=== PATIENT | female | born 1985 | race Caucasian/White ===

== ENCOUNTER 2016-09-11 12:06 | Inpatient (IN) | payer BC ==
[~2016-09-11] VITALS: Ht 160 cm; Wt 85.0 kg
[2016-10-07 20:26] LABS: BASO % 0.2 % (0.0-2.0); EOS # 0.1 (0.0-0.7); EOS % 0.3 % (0-4.0); GRAN # 12.5 (1.4-6.5); GRAN % 76.7 % (42.2-75.2); HEMATOCRIT 38.4 % (37.0-47.0); HEMOGLOBIN 12.9 g/dl (12.5-16.0); LYMPH # 2.5 (1.2-3.4); LYMPH % 15.5 % (20.0-51.0); MEAN CELL VOLUME 83 fl (80.0-100.0); MEAN CORPUSCULAR HEMOGLOBIN 28 pg (27.0-31.0); MEAN CORPUSCULAR HGB CONC 34 g/dl (33.0-37.0); MEAN PLATELET VOLUME 11.2 fl (7.4-10.4); MONO # 1.1 (0.1-0.6); MONO % 6.6 % (1.7-9.3); PLATELET COUNT 340 K/mm3 (130-400); RED BLOOD COUNT 4.64 M/mm3 (4.10-5.30); REDCELL DISTRIBUTION WIDTH-CV 13.4 % (11.5-14.5); WHITE BLOOD COUNT 16.3 K/mm3 (4.8-10.8)
[2016-10-07 20:42] VITALS: BP 135/89; PULSE 118; TEMP 98.5
[2016-10-07 21:15] VITALS: BP 122/83; PULSE 108
[2016-10-07] MEDS ORDERED: ALBUTEROL SULFAT3 M3 (21:19)
[2016-10-07] MEDS ORDERED: QVAR0.08 MG/AC IH (21:21)
[2016-10-07] MEDS ORDERED: B COMPLEX #11 TA1 (21:22)
[2016-10-07] MEDS ORDERED: SINGULAIR 110 MG/TAB PO (21:24)
[2016-10-07] MEDS ORDERED: ZOLOFT 50MG50 MG PO (21:25)
[2016-10-07] MEDS ORDERED: PRENATA1 CTB PO (21:26)
[2016-10-07] MEDS ORDERED: CITRACAL PETITES PO (21:28)
[2016-10-07] MEDS ORDERED: [UNRECOGNIZED DRUG - OTHER] PO (21:31)
[2016-10-07] MEDS ORDERED: PRIL40 PO (21:32)
[2016-10-07] MEDS ORDERED: [UNRECOGNIZED DRUG - REMARK] PO (21:39)
[2016-10-07 21:45] VITALS: BP 123/80; PULSE 101
[2016-10-07 22:15] VITALS: BP 123/81; PULSE 102; TEMP 98.3
[2016-10-07 22:45] VITALS: BP 124/86; PULSE 103
[2016-10-07] MEDS ORDERED: ATIVAN 0.50.5 MG/TAB PO (23:30)
[2016-10-08] VITALS (40 sets, daily range): BP systolic 92–146; BP diastolic 50–98; PULSE 78–153; TEMP 98–98.5
[2016-10-08] MEDS ORDERED: CITRACAL PETITE1 TAB PO (16:49)
[2016-10-09 01:00] VITALS: BP 115/68; PULSE 88; TEMP 98
[2016-10-09 05:00] VITALS: BP 120/68; PULSE 68; TEMP 98.1
[2016-10-09 07:15] VITALS: BP 92/54; PULSE 85; TEMP 97.2
[2016-10-09 07:30] LABS: BASO # 0.1 (0.0-0.2); BASO % 0.3 % (0.0-2.0); EOS # 0.1 (0.0-0.7); EOS % 0.8 % (0-4.0); GRAN # 12.6 (1.4-6.5); GRAN % 70.5 % (42.2-75.2); LYMPH # 3.5 (1.2-3.4); LYMPH % 19.7 % (20.0-51.0); MEAN CELL VOLUME 86 fl (80.0-100.0); MEAN CORPUSCULAR HGB CONC 32 g/dl (33.0-37.0); MEAN PLATELET VOLUME 11.1 fl (7.4-10.4); MONO # 1.4 (0.1-0.6); MONO % 7.8 % (1.7-9.3); PLATELET COUNT 265 K/mm3 (130-400); RED BLOOD COUNT 3.76 M/mm3 (4.10-5.30); REDCELL DISTRIBUTION WIDTH-CV 13.5 % (11.5-14.5); WHITE BLOOD COUNT 17.9 K/mm3 (4.8-10.8)
[2016-10-09 07:33] LABS: HEMATOCRIT 32.2 % (37.0-47.0); HEMOGLOBIN 10.4 g/dl (12.5-16.0); MEAN CORPUSCULAR HEMOGLOBIN 28 pg (27.0-31.0)
[2016-10-09] MEDS ORDERED: IBU800 M1 PO (08:25)
[2016-10-09] MEDS ORDERED: PERCOCET 325 MG1 TA2 PO (08:25)
[2016-10-09 16:30] VITALS: BP 131/88; PULSE 97; TEMP 97.7
[2016-10-09 20:45] VITALS: BP 131/86; PULSE 105; TEMP 98.4
[2016-10-10 08:41] VITALS: BP 119/80; PULSE 97
== END 2016-10-10 14:05 | disposition home or self-care (01) | DRG 775 ==
LOC: LDR → EDSTATUS 09-30 09:50 → LDRO 09-30 12:05 → LDR 10-07 09:03 → OB 10-07 19:34 → LDR 10-07 19:34 → OB 10-08 17:50
PROVIDERS: Student in an Organized Health Care Education/Training Program
PROC: 10E0XZZ Delivery of Products of Conception, External Approach (ICD-10-PCS; principal; 2016-10-08)
PROC: 0KQM0ZZ Repair Perineum Muscle, Open Approach (ICD-10-PCS; 2016-10-08)
PROC: 3E033VJ Introduction of Other Hormone into Peripheral Vein, Percutaneous Approach (ICD-10-PCS; 2016-10-08)
DX: O48.0 Post-term pregnancy (principal); O70.1 Second degree perineal laceration during delivery; Z3A.41 41 weeks gestation of pregnancy; Z37.0 Single live birth
CPT/HCPCS: J2400; J2590; J7120

== ENCOUNTER 2019-02-06 14:31 | Inpatient (IN) | payer BC ==
[2019-02-06] VITALS (31 sets, daily range): BP systolic 103–141; BP diastolic 56–88; PULSE 73–108; TEMP 97.3–98.2
[~2019-02-06] VITALS: Ht 160 cm; Wt 88.6 kg
[~2019-02-06 14:31] MED LIST: ALBUTEROL SULFAT3 M3; ATIVAN 0.50.5 MG/TAB PO; B COMPLEX #11 TA1; CITRACAL PETITE1 TAB PO; CITRACAL PETITES PO; IBU800 M1 PO; PERCOCET 325 MG1 TA2 PO; PRENATA1 CTB PO; PRIL40 PO; QVAR0.08 MG/AC IH; SINGULAIR 110 MG/TAB PO; ZOLOFT 50MG50 MG PO; [UNRECOGNIZED DRUG - OTHER] PO; [UNRECOGNIZED DRUG - REMARK] PO
--- NOTE | 2019-02-06 14:50 | NUR ---
Patient arrives ambulatory with spouse with complaints of contractions every 5 minutes. Patient states that she started clarissa last night and they have slowly increased in frequency. Patient denies ROM or vaginal bleeding. Reports normal movement. Patient changes into gown, EFM explained and placed. VS obtained. SVE by Richie Cevallos RN . Patient repositioned WL and updated on plan of care. Assessment completed. Patient breathing through contractions.
--- NOTE | 2019-02-06 15:15 | NUR ---
Called Dr. Barker office and spoke to nurse. Let her know that a patient of Dr. Cummings is here. Let her know that she is dilated to four, 75% effaced, -2 station. Also let her know that heart tones at 130 with accelerations noted. Nurse states will let Dr. Rockwell know.
--- NOTE | 2019-02-06 17:00 | NUR ---
1715 Request epidural. Anesthesia notified of request of epidural.
[2019-02-06 17:08] LABS: BASO % 0.2 % (0.0-2.0); EOS % 0.1 % (0-4.0); GRAN % 79.3 % (42.2-75.2); HEMOGLOBIN 11.2 g/dl (12.5-16.0); LYMPH # 2.2 (1.2-3.4); LYMPH % 13.4 % (20.0-51.0); MEAN CELL VOLUME 84 fl (80.0-100.0); MEAN CORPUSCULAR HEMOGLOBIN 27 pg (27.0-31.0); MEAN CORPUSCULAR HGB CONC 33 g/dl (33.0-37.0); MEAN PLATELET VOLUME 9.8 fl (7.4-10.4); PLATELET COUNT 286 K/mm3 (130-400); RED BLOOD COUNT 4.11 M/mm3 (4.10-5.30); REDCELL DISTRIBUTION WIDTH-CV 13.5 % (11.5-14.5)
[2019-02-06 17:19] LABS: HEMATOCRIT 34.3 % (37.0-47.0)
--- NOTE | 2019-02-06 17:30 | NUR ---
1735 Anesthesia here, visits with patient. 1744 Local given by anesthesia Birdie Winslow c.r.na. 1745 Space obtained and single shot given by anesthesia. 1748 Catheter placed by anesthesia.
--- NOTE | 2019-02-06 18:00 | NUR ---
Rests in bed, states feeling better.
--- NOTE | 2019-02-06 22:20 | NUR ---
2144- DR. MARTINEZ ON HER WAY TO ASSESS PT. NOTIFIED THAT PT STATES SHE IS FEELING INCREASED PRESSURE IN HER VAGINA 2148- POSITION CHANGED TO LEFT LATERAL WITH LEG IN STIRRUP. 2152- ADJUSTING TOCO, FHT'S NOTED IN THE 70-80'S. PULSE OX ON, MATERNAL HR OF 80. STRIP BROKEN BUT FHT AUDIBLE IN THE 90'S. 2154- Anabella. THERESA PEARSON IN ROOM TO ASSIST. THIS NURSE PERFORMS SVE, RIGHT ANTERIOR LIP, CLEAR FLUID NOTED DURING EXAM WITH MEMBRANES HANGING FROM VAGINA, SROM AT APPROXIMATELY THIS TIME. 02 APPLIED AT 10L PER MASK. 2155- LR BOLUS STARTED, POSITIONED CHANGED TO SEMI FOWLERS. 2199- DR. MARTINEZ NOTIFIED OF FHT'S AND SROM. FHT'S NOW IN THE LOW 100'S. DR. MARTINEZ STATES SHE IS ALMOST TO THE HOSPITAL. 2204- DR. MARTINEZ IN ROOM, SVE OF COMPLETE. 2209- PT BEGINS PUSHING WITH DR. MARTINEZ. 2216- SPONTANEOUS VAGINAL DELIVERY OF VIABLE BABY BOY. CORD CLAMPED BY DR. MARTINEZ, CUT BY FOB. BABY TO MOTHER'S ABDOMEN, CARE ASSUMED BY Valerie PERALTA RN. 2219- SPONTANEOUS DELIVERY OF INTACT PLACENTA. PITOCIN STARTED PER PROTOCOL. DR. MARTINEZ BEGINS REPAIR OF SECOND DEGREE LACERATION. RIGHT LABIAL LACERATION NOTED BUT DOES NOT REQUIRE REPAIR PER DR. MARTINEZ. RECOVERY STARTED.
[2019-02-07] VITALS (7 sets, daily range): BP systolic 98–119; BP diastolic 46–78; PULSE 76–93; TEMP 97.9–98.8
[2019-02-08] MEDS ORDERED: IBU600 MG PO (08:17)
[2019-02-08 09:00] VITALS: BP 118/84; PULSE 72; TEMP 98
--- NOTE | 2019-02-08 10:26 | NUR ---
Initial visit attempt; Patient resting then Physician came. Crutch Maker left card of congratulations and God's blessings for the of her son and information regarding the availability of spiritual care at [facility].
== END 2019-02-08 15:30 | disposition home or self-care (01) | DRG 807 ==
LOC: LDRO 14:31 → LDR 14:31 → LDRO 16:32 → LDR 16:33 → OB 02-07 06:30 → LDR 02-07 07:12 → EDSTATUS 02-07 14:57 → OB 02-08 15:30
PROVIDERS: Obstetrics & Gynecology; ADMIT Student in an Organized Health Care Education/Training Program
PROC: 10E0XZZ Delivery of Products of Conception, External Approach (ICD-10-PCS; principal; 2019-02-06)
PROC: 0KQM0ZZ Repair Perineum Muscle, Open Approach (ICD-10-PCS; 2019-02-06)
DX: O99.344 Other mental disorders complicating childbirth (principal); Z37.0 Single live birth; F32.9 Major depressive disorder, single episode, unspecified; F41.9 Anxiety disorder, unspecified; O99.214 Obesity complicating childbirth; E66.9 Obesity, unspecified; O99.52 Diseases of the respiratory system complicating childbirth; J45.909 Unspecified asthma, uncomplicated; F90.9 Attention-deficit hyperactivity disorder, unspecified type; O70.1 Second degree perineal laceration during delivery; O99.62 Diseases of the digestive system complicating childbirth; K21.9 Gastro-esophageal reflux disease without esophagitis; Z3A.40 40 weeks gestation of pregnancy
CPT/HCPCS: J2590; J2795; J7120

== ENCOUNTER → 2019-02-10 | Outpatient (CLI) | payer BC ==
[~2019-02-10] MED LIST changes: +IBU600 MG PO
--- NOTE | 2019-02-10 13:41 | NUR ---
Pt, Lottie Medel, presents for outpatient consult with four day old baby boy, Dionte Medel, for a evaluation. She is accompanied by her spouse, mother, and 3 year old child. Dionte was born on [birth year] by . He is her second child but she states she had "issues" her first child. The reports of what the issues were are difficult to understand. Dionte had latching issues while in the hospital because of pts large breasts, 's small size, pt's understanding of basics. At Dionte weighed 7#3.9oz (3285 gms). Discharge weight was 6#14oz. Dionte was noted to have a tongue tie while in the hospital, it was confirmed at his appointment with Dr. Munoz this morning so the family will be looking into have it treated next week. Today Dionte weighs 6#11.7 (3054 gms) for a 7% wt loss. Pt reports 6 voids and 2 stools yesterday and so far today 3 voids and 1 stool that is starting to turn brown/yellow/seedy. Pt's records reflect 6 feedings per 24 hours. She has been recording each side as a seperate feeding so it appears he nurses several times daily. But when looked at more closely, he is nursing both per feeding so actual number of feedings per day has not been more than six. Pt reports collecting milk on the breast he is not latched to with the [place] and has collected an average of 30ml per session, x 4 sessions so she feels her milk supply is good. Pt advised on proper placement of nipple shield to keep it in place better. With this he latches about 20 min on the right side and Total weight gain after was 1.2oz (34 gms). POC: Pt advised to breastfeed both sides each feeding, and at least 8 feedings per 24 hours, supplement 0.5-1oz p of EBM, pump after to ensure good milk supply and to have supplement. F/U: Not scheduled at this time as pt plans to have his tongue tie evaluated and she will contact this LC for an appointment pending that evaluation. Noeons invited and answered.
== END ==
LOC: OLC 13:01
DX: Z39.1 Encounter for care and examination of lactating mother (principal); Z71.89 Other specified counseling

== ENCOUNTER → 2019-02-21 | Outpatient (CLI) | payer BC ==
--- NOTE | 2019-02-21 16:32 | NUR ---
Pt, Lottie Medel, presents for follow up consult 17 day old baby boy, Dionte Medel, and her . They also were seen on 02/10/19 for a consult. Dionte was born on [birth year] by and weighed 7#3.9oz (3286 gms). It was noted he had a tongue tie. It was revised on 02/14/19. At our previous consult Dionte weighed 6#11.7oz. He transfered 1.2oz per post feed weight. Pt was advised to increase feedings from 6 to at least 8 and supplement about 1oz p breastfeedings. They had his [facility] at the [facility] on 02/16 and 02/20, both times he weighed 6#12oz. Pt contacted this LC after that and was advised to pump and bottle feed every 2-3 hours. Since yesterday they report Dionte is more interested in feedings, wakes himself up every 2-3 hours and drinks about 2oz EBM each feeding. Today Dionte weighs 7#2.3oz. Pt attempts here, with LC assist latch, is difficult and he has a total transfer of 8gms after 20 min of attempting. Dionte was then fed about 45ml EBM from a bottle. LC notes his ability to raise his tongue is better, he has a wound with appropriate healing under his tongue, but he continues to have an indentation at the tip of his tongue. During the feeding process it feels like he still slides the tongue in and out across the gum line. Pt states she still feels him biting. LC does a suck evaluation and notes he has a bit of a high anterior palate that may be trapping the nipple and not letting it get far enough back to get adequate compression to transfer milk. POC: Pump and bottle feed every 2-3 hours, offering 2-3 oz per feeding. Offer breast a few time daily, but recognize his effort is not sufficient to transfer adequately. Discussed/demonstrated suck training as a method to help with tongue placement. F/U: Scheduled for 03/10/19. Questions invited and answered.
== END ==
LOC: OLC 14:30
DX: Z39.1 Encounter for care and examination of lactating mother (principal); Z71.89 Other specified counseling

== ENCOUNTER → 2019-03-10 | Outpatient (CLI) | payer BC ==
--- NOTE | 2019-03-10 14:13 | NUR ---
Pt, Lottie Medel, presents with one month old baby boy, Dionte Medel, and her spouse to discuss infant feeding plan. Dionte was born on [birth year] and weighed 7#3.9oz. At our previous consult on 02/21/19 Dionte weighed 7#2.3oz. Because Dionte was not tranferring milk (8 ml at previous consult), this family has been pumping and bottle feeding. Dionte drinks 2-3oz every 2-3 hours. His weight at his one month appt earlier today is reported to be 8#10oz, for an average daily gain of 1.4oz since our previous visit. Pt also report the pediatric dentist felt that Dionte would not latch well because of a lip tie that the family elected not to revise. Family is doing well with pumping and bottle feeding, pt is able to collect 4-7 per feeding with her breastpump. POC: continue current feeding plan, consider increasing amount to 3 oz per feeding as Dionte tolerates. F/U: As scheduled for his next well baby visit. Questions invited and answered.
== END ==
LOC: LAC 13:26
DX: Z39.1 Encounter for care and examination of lactating mother (principal); Z71.89 Other specified counseling